=== PATIENT | male | born 1990 | race Caucasian/White ===

== ENCOUNTER 2020-07-16 10:15 | Emergency (ER) | payer OTHER ==
[~2020-07-16] VITALS: Ht 193 cm; Wt 113.4 kg
[2020-07-16] MEDS ORDERED: NAPROSYN500 MG PO (12:20)
[2020-07-16] MEDS ORDERED: MEDROLDOSEPACK PO (12:20)
[2020-07-16] MEDS ORDERED: FLEXERIL PO (12:20)
[2020-07-16 12:36] VITALS: BP 125/81
== END 2020-07-16 12:37 | disposition home or self-care (01) ==
LOC: M.ERS 10:15
DX: S16.1XXA Strain of muscle, fascia and tendon at neck level, initial encounter (principal); M79.662 Pain in left lower leg; V89.2XXA Person injured in unspecified motor-vehicle accident, traffic, initial encounter; Y93.I9 Activity, other involving external motion; Y92.488 Other paved roadways as the place of occurrence of the external cause; Y99.8 Other external cause status